=== PATIENT | male | born 1950 | race Caucasian/White ===

== ENCOUNTER → 2017-05-20 | Outpatient (CLI) | payer OTHER, BC | LOC: BRMIMAGING 13:58 | PROVIDERS: ATTEND Family Medicine Sports Medicine | DX: Z13.820 Encounter for screening for osteoporosis (principal); M85.80 Other specified disorders of bone density and structure, unspecified site; Z82.62 Family history of osteoporosis ==

== ENCOUNTER → 2017-12-22 | Outpatient (CLI) | payer OTHER, BC | LOC: FIMAGING 11:34 | PROVIDERS: ATTEND Physical Medicine & Rehabilitation Pain Medicine | DX: M43.16 Spondylolisthesis, lumbar region (principal); M48.061 Spinal stenosis, lumbar region without neurogenic claudication ==

== ENCOUNTER → 2017-12-29 | Outpatient (CLI) | payer OTHER, BC | LOC: FIMAGING 11:27 | PROVIDERS: ATTEND Physical Medicine & Rehabilitation Pain Medicine | DX: M48.061 Spinal stenosis, lumbar region without neurogenic claudication (principal) ==

== ENCOUNTER 2018-01-23 07:15 | Inpatient (IN) | payer OTHER, BC ==
[~2018-01-23 07:15] MED LIST: TRANEXAMIC ACID 1,000 MG in NS (SYRINGE) 50 ML IV ONE
[2018-01-23] MEDS ORDERED: morphINE PF 5 MG/10 ML INJ IT ONE (07:40)
[2018-01-23] MEDS ORDERED: ceFAZolin 2 GM/SWFI 2 GM/20 ML SYR IVP ONE (07:40)
[2018-01-23] MEDS ORDERED: fentaNYL 100 MCG/2 ML INJ IT ONE (07:40)
[2018-01-23] MEDS ORDERED: LR 1,000 ML IV ONE (07:42)
--- NOTE | 2018-01-23 08:32 | PDHPUP ---
History & Physical Update H&P update statement: This history and physical update is based on an assessment of the patient which was completed after admission or registration (within 24 hours), but prior to the surgery/procedure. H&P update: H&P reviewed & patient examined, no change in patient's condition since H&P completed
[2018-01-23] MEDS ORDERED: THROMBIN (BOVINE) 5,000 UNIT VIAL TP ONE (09:33)
[2018-01-23] MEDS ORDERED: BACITRACIN 50,000 UNITS/10 ML SYR IRR ONE ×2 (09:33→11:41)
[2018-01-23] MEDS ORDERED: CHLORHEXIDINE GLUC HIBICLENS 118 ML BTL TP ONE (09:33)
[2018-01-23] MEDS ORDERED: PROPOFOL 200 MG/20 ML VIAL ONE (09:47)
[2018-01-23] MEDS ORDERED: fentaNYL 100 MCG/2 ML INJ ONE ×3 (09:47→12:25)
[2018-01-23] MEDS ORDERED: REMIFENTANIL HCL 1 MG VIAL ONE (09:47)
[2018-01-23] MEDS ORDERED: PROPOFOL/EMULSION 500 MG/50 ML BOTTLE IV ONE (09:47)
[2018-01-23] MEDS ORDERED: DIAZEPAM 5 MG/ML 1 ML SYR IVP PRN (09:51)
[2018-01-23] MEDS ORDERED: OXYCODONE/APAP 5/325 TAB PO PRN (09:51)
[2018-01-23] MEDS ORDERED: fentaNYL 100 MCG/2 ML INJ IVP PRN (09:51)
[2018-01-23] MEDS ORDERED: HYDROCODONE/APAP 5/325 TAB PO PRN (09:51)
[2018-01-23] MEDS ORDERED: ENALAPRILAT DIHYDRATE 1.25 MG/ML VIAL IVP PRN (09:51)
[2018-01-23] MEDS ORDERED: LR 500 ML IV PRN (09:51)
[2018-01-23] MEDS ORDERED: ACETAMINOPHEN 500 MG TAB PO PRN (09:51)
[2018-01-23] MEDS ORDERED: ONDANSETRON 4 MG/2 ML VIAL IVP PRN ×2 (09:51→12:38)
[2018-01-23] MEDS ORDERED: PROMETHAZINE HCL 25 MG/ML INJ IVP PRN (09:51)
[2018-01-23] MEDS ORDERED: NALOXONE HCL 0.4 MG/ML INJ IVP PRN ×2 (09:51→12:38)
--- NOTE | 2018-01-23 09:51 | PDANEPAE ---
ANE Past Medical History - Cardiovascular History Hx Hypertension: No Hx Arrhythmias: No Hx Chest Pain: No Hx Coronary Artery / Peripheral Vascular Disease: No Hx CHF / Valvular Disease: No Hx Palpitations: No Cardiovascular History Comment: BROTHER [place] AT AGE 42. FATHER CARDIAC HX - Pulmonary History Hx COPD: No Hx Asthma/Reactive Airway Disease: No Hx Recent Upper Respiratory Infection: No Hx Oxygen in Use at Home: No Hx Sleep Apnea: No Sleep Apnea Screening Result - Last Documented: Negative - Neurologic History Hx Cerebrovascular Accident: No Hx Seizures: Yes Hx Dementia: No Neurologic History Comment: TEMPORAL LOBE SEIZURES - MILD. NONE FOR PAST 2 YEARS - Endocrine History Hx Diabetes: No Hypothyroid: No Hyperthyroid: No Obesity: no - Renal History Hx Renal Disorders: No - Liver History Hx Hepatic Disorders: No - Neurological & Psychiatric Hx Hx Neurological and Psychiatric Disorders: No - Cancer History Hx Cancer: No - Congenital Disorder History Hx Congenital Disorders: No - GI History GERD: mild Hx Gastrointestinal Disorders: Yes Gastrointestinal History Comment: PEPCID FOR HEARTBURN - Other Health History Other Health History: PSORIASIS - HUMIRA PEN - Chronic Pain History Chronic Pain: Yes (R KNEE) - Surgical History Prior Surgeries: KNEE R ARTHROSCOPIC ANE Review of Systems Review of Systems: - Exercise capacity METS (RN): 5 METS ANE Patient History - Allergies Allergies/Adverse Reactions: Antihistamines - Alkylamine Allergy (Verified 01/09/18 10:38) CAUSE SEIZURES - Home Medications Home Medications: Atorvastatin Calcium [Lipitor 10 mg (*)] 10 mg PO DAILY 05/18/12 [Last Taken 01/29 06:00] Zonisamide [Zonegran 100MG (*)] 200 mg PO DAILY 09/16/14 [Last Taken 01/23/18] Adalimumab [Humira] 40 mg SQ Q30D 01/07/18 [Last Taken 01/16/18] Herbals/Supplements -Info Only 1 ea PO DAILY 01/07/18 [Last Taken 01/16/18] Ibuprofen [Motrin (*)] 200 mg PO DAILY PRN 01/07/18 [Last Taken 01/16/18] Magnesium Oxide [Magnesium Oxide 400 mg (*)] 400 mg PO DAILY 01/07/18 [Last Taken 01/16/18] Famotidine [Pepcid 20 MG (*)] 20 mg PO DAILY 01/09/18 [Last Taken 01/22/18] - NPO status NPO Since - Liquids (Date): 01/22/18 NPO Since - Liquids (Time): 22:00 NPO Since - Solids (Date): 01/22/18 NPO Since - Solids (Time): 19:00 - Smoking Hx Smoking Status: Former smoker ANE Labs/Vital Signs - Vital Signs Blood Pressure: 158/92 Heart Rate: 63 Respiratory Rate: 16 O2 Sat (%): 98 Height: 182.88 cm Weight: 72.575 kg ANE Physical Exam - Airway Neck exam: FROM Mallampati Score: Class 2 Mouth exam: normal dental/mouth exam - Pulmonary Pulmonary: no respiratory distress - Cardiovascular Cardiovascular: regular rate and rhythym, no murmur, rub, or gallop - ASA Status ASA Status: II ANE Anesthesia Plan Anesthesia Plan: general endotracheal anesthesia Total IV Anesthesia: No
[2018-01-23] MEDS: BUPIVACAINE 0.25% 30 ML SDV ONE ×2 (10:55→12:34)
[2018-01-23] MEDS ORDERED: morphINE PF 5 MG/10 ML INJ ONE (11:41)
[2018-01-23] MEDS ORDERED: BISACODYL 10 MG SUPP PR PRN (12:38)
[2018-01-23] MEDS ORDERED: MAGNESIUM HYDROXIDE 30 ML UDCUP PO PRN (12:38)
[2018-01-23] MEDS ORDERED: LACTULOSE 20 GM/30 ML UDCUP PO PRN (12:38)
[2018-01-23] MEDS ORDERED: ONDANSETRON DISINTEGRATING 4 MG TAB PO PRN (12:38)
--- NOTE | 2018-01-23 12:48 | SOAPPROG ---
SOAP Progress Note Assessment/Plan: Assessment: 46 M sp L4/5 tlif with durotomy Plan: stable hob flat for 48 hours do NOT put JEFFREY to suction LSO brace when out of bed please call with neuro changes 01/23/18 12:47 Subjective: + back pain, no leg pain. Objective: Vital Signs Temp Pulse Resp BP Pulse Ox 36.4 C 63 16 158/92 H 98 01/23/18 08:00 01/23/18 09:51 01/23/18 09:51 01/23/18 09:51 01/23/18 09:51 somnolent, PERRL no facial droop 5/5 + light touch ICD10 Worksheet Patient Problems: Problems Problem Status Onset Primary localized osteoarthrosis, lower leg Chronic
--- NOTE | 2018-01-23 13:23 | POSTANESTH ---
Post Anesthetic Evaluation Cardiovascular Status: Normal, Stable Respiratory Status: Normal, Stable Level of Consciousness/Mental Status: Can Participate in Eval Pain Control: Adequate, Prn Tx Ordered Nausea/Vomiting Control: Adequate, Prn Tx Ordered Complications Possibly Related to Anesthesia: None Noted
[2018-01-23] MEDS ORDERED: ceFAZolin 2 GM/DEXTROSE 100 ML IV SCH (14:00)
--- NOTE | 2018-01-23 14:08 | GOP ---
[f rep st] OPERATIVE REPORT DATE OF OPERATION: 01/23/2018 SURGEON: George Clement MD DIRECTOR HR COMMUNICATIONS: London Gates PA-C. ANESTHESIA: General endotracheal. PREOPERATIVE DIAGNOSIS: Severe L4-5 disk degeneration and collapse with severe spinal stenosis and lateral recess impingement with an L4-5 facet cyst. Intractable back and leg pain. Failed conservative care. POSTOPERATIVE DIAGNOSIS: Severe L4-5 disk degeneration and collapse with severe spinal stenosis and lateral recess impingement with an L4-5 facet cyst. Intractable back and leg pain. Failed conservative care. PROCEDURE PERFORMED: 1. Mini open exposure for left-sided L4-5 far lateral transpedicular decompression and resection of facet cyst with repair of CSF leak requiring extension of laminectomy defect. 2. L4-5 posterior nonsegmental (pedicle screw) fixation and posterolateral fusion with local autograft and bone morphogenic protein. 3. L4-5 posterior/transforaminal lumbar interbody fusion with 2 structural PEEK interbody spacers, local autograft and bone morphogenic protein. 4. Use of intraoperative microscopy, fluoroscopy and computer volumetric stereotactic navigation with intraoperative neurophysiologic testing. 5. Injection of intrathecal narcotic analgesics for postoperative pain control. FINDINGS: ESTIMATED BLOOD LOSS: 75 cc. INDICATIONS: The patient is a 67-year-old man with intractable low back pain and left greater than right lower extremity radicular pain secondary to severe disk degeneration and collapse with severe spinal stenosis and lateral recess impingement. He has failed extensive conservative care and presents now for surgical decompression and stabilization through a mini open approach. DESCRIPTION OF PROCEDURE: After informed consent was obtained, the patient was taken to the operating room and placed in the prone position on the Filemon table. The lumbosacral area was prepped and draped in a sterile fashion. After fluoroscopic localization of the correct levels, the subcutaneous and intramuscular tissues were infiltrated with local anesthesia. A midline linear incision was then created over the L4-5 spinous processes. This was carried down the fascial layer, which was then incised using monopolar electrocautery and carried in a subperiosteal dissection down the spinous processes and lamina bilaterally. Intraoperative fluoro was again utilized to verify the correct levels. Following this, a dissection was carried out over the facet joints and a left-sided far lateral transpedicular decompression was performed with complete unroofing of the facet joint and neural foramina at L4 and L5. There was a large facet cyst causing severe impingement of the dura that was meticulously peeled off under high-power microscopy but unfortunately when it came off completely, there was a small hole with CSF leaking out of this on the very dorsal aspect of where it was attached. This required an extension of the hemilaminectomy/facetectomy defect for adequate exposure. A single 4-0 Nurolon suture was placed over this, along with DuraGen, and no further leakage was observed. Following this, the Cozi neuronavigational system was brought in and using computer volumetric stereotactic navigation, pedicle screws were placed at L4 and L5 bilaterally. Each individual screw was tested neurophysiologically with monopolar electrostimulation and interpretation of the potentials by the surgeon. The rods were then placed and secured under distraction, during which time a complete diskectomy was performed at the L4-5 level with preparation of the endplates and placement of 2 structural PEEK interbody spacers, local autograft and bone morphogenic protein for an L4-5 posterior/transforaminal lumbar interbody fusion. Following this, the screw and kimmie system were placed in a slight amount of compression in order to facilitate bony union and to minimize the potential for posterior graft migration. The remaining lamina and facet joint on the right side were then extensively decorticated, and the residual local autograft from the facetectomy defect along with bone morphogenic protein was placed out laterally for a posterolateral fusion at the L4-5 level. 200 mcg of Duramorph along with 50 mcg of fentanyl were injected intrathecally for postoperative pain control. The subcutaneous and intramuscular tissues were re-infiltrated with local anesthesia. A drain was placed and the wound was closed in a layered fashion using interrupted Vicryl sutures followed by Steri-Strips on the skin. COMPLICATIONS: None. DISPOSITION: The patient was extubated and transferred to the recovery room in stable condition. /[id number]/MODL MTDD
[2018-01-23] MEDS: oxyCODONE IR 5 MG TAB PO PRN ×2 (14:09→21:47)
[2018-01-23] MEDS: METHOCARBAMOL 750 MG TAB PO PRN (15:24)
[2018-01-23] MEDS: DIAZEPAM 5 MG TAB PO PRN ×2 (16:09→21:47)
[2018-01-23] MEDS: ceFAZolin 2 GM/SWFI 2 GM/20 ML SYR IVP SCH ×2 (16:09→23:05)
--- NOTE | 2018-01-23 16:58 | PDMN ---
Medical Necessity Medical necessity: Pt meets IP criteria; [facility] IP only surgery CPT 72317 Lumbar Fusion
[2018-01-23] MEDS: POLYETHYLENE GLYCOL 3350 17 GM PKT PO SCH ×2 (17:37→21:48)
[2018-01-23] MEDS ORDERED: ADALIMUMAB 40 MG/0.8 ML INJ SC SCH (17:45)
[2018-01-23] MEDS: morphINE SR 15 MG TAB PO SCH (21:46)
[2018-01-23] MEDS: FAMOTIDINE 20 MG TAB PO SCH (21:47)
[2018-01-23] MEDS: SENNOSIDES/DOCUSATE SODIUM TAB PO SCH (21:48)
[2018-01-24 05:10] LABS: PLATELET COUNT 181 10^3/uL (150-400)
--- NOTE | 2018-01-24 07:54 | SOAPPROG ---
SOAP Progress Note Assessment/Plan: Assessment: 67 yo male POD #1 sp L4/5 TLIF with Durotomy. HOB flat until Saturday AM. sensation improved in bilateral feet Plan: HOB flat until Saturday AM JEFFREY NOT to suction Xrays Saturday once he is up and mobile. Contiue Morrison due to bed rest lovenox starts today, continue Teds/SCDs 01/24/18 07:50 01/24/18 07:55 Subjective: lying flat, feeling fine. He states his feet haven't felt this goo in 10 years. Denies new numbness, tingling or weakness. Morrison placed last night due to inability to urinate while flat in bed. 800ml on bladder scan prior to morrison placement. Objective: Vital Signs Temp Pulse Resp BP Pulse Ox 36.8 C 87 18 157/86 H 96 01/24/18 04:00 01/24/18 04:00 01/24/18 04:00 01/24/18 04:00 01/24/18 04:00 Laboratory Results 01/24/18 04:55 01/24/18 04:55 01/23/18 01/24/18 01/25/18 05:59 05:59 05:59 Intake Total 2140 Output Total 1200 Balance 940 Neuro: TROY, sens +LT 5/5 bilat LE Incision: glued. CDI, no drainage from incision JEFFREY: approx 3-5 ml in bulb this AM serosang. ICD10 Worksheet Patient Problems: Problems Problem Status Onset Primary localized osteoarthrosis, lower leg Chronic
[2018-01-24] MEDS: ENOXAPARIN 40 MG/0.4 ML SYR SC SCH (09:30)
[2018-01-24] MEDS: ZONISAMIDE 100 MG CAP PO SCH (09:31)
[2018-01-24] MEDS: SENNOSIDES/DOCUSATE SODIUM TAB PO SCH ×2 (09:31→21:59)
[2018-01-24] MEDS: FAMOTIDINE 20 MG TAB PO SCH ×2 (09:32→21:59)
[2018-01-24] MEDS: morphINE SR 15 MG TAB PO SCH (09:32)
[2018-01-24] MEDS: MAGNESIUM OXIDE 400 MG TAB PO SCH (09:32)
[2018-01-24] MEDS: POLYETHYLENE GLYCOL 3350 17 GM PKT PO SCH ×3 (09:32→21:59)
[2018-01-24] MEDS: ATORVASTATIN CALCIUM 10 MG TAB PO SCH (09:32)
[2018-01-24] MEDS: METHOCARBAMOL 750 MG TAB PO PRN ×3 (09:41→16:52)
[2018-01-24] MEDS: oxyCODONE IR 5 MG TAB PO PRN ×3 (12:04→18:39)
--- NOTE | 2018-01-24 12:58 | ASMTCMCOM ---
CM Note CM Note Notes: Chart reviewed for discharge planning purposes, Patient 67 year old male here for elective back surgery. Bedrest till Saturday am. Therapy evals pending. DC needs to be determined at this time. CM to follow. Date Signed: 01/24/2018 12:57 PM Electronically Signed By:Adelina Smalls RN
[2018-01-24] MEDS: morphINE SR 30 MG TAB PO SCH (21:59)
[2018-01-25 04:36] VITALS: RESP 16
[2018-01-25] MEDS: METHOCARBAMOL 750 MG TAB PO PRN (09:52)
[2018-01-25] MEDS: SENNOSIDES/DOCUSATE SODIUM TAB PO SCH (09:52)
[2018-01-25] MEDS: POLYETHYLENE GLYCOL 3350 17 GM PKT PO SCH ×2 (09:52→18:59)
[2018-01-25] MEDS: ENOXAPARIN 40 MG/0.4 ML SYR SC SCH (09:52)
[2018-01-25] MEDS: morphINE SR 30 MG TAB PO SCH ×2 (09:53→22:14)
[2018-01-25] MEDS: ATORVASTATIN CALCIUM 10 MG TAB PO SCH (09:53)
[2018-01-25] MEDS: MAGNESIUM OXIDE 400 MG TAB PO SCH (09:53)
[2018-01-25] MEDS: FAMOTIDINE 20 MG TAB PO SCH ×2 (09:53→22:14)
[2018-01-25] MEDS: ZONISAMIDE 100 MG CAP PO SCH (09:56)
--- NOTE | 2018-01-25 13:43 | NEUSURGPN ---
Assessment/Plan: 67 yo male POD #2 sp L4/5 TLIF with Durotomy. Plan: Raise HOB by 10 degrees per hour, monitor for positional headaches JEFFREY NOT to suction - continue drain Xrays Saturday once he is up and mobile. Continue Houser due to bed rest - dc once ambulatory lovenox, continue Teds/SCDs Call NS with any questions Subjective: Pt resting in bed, looking forward to getting up today Objective: AAOx3 NAD VSS MAEx4 Motor 5/5 BLE Incision dressed cdi JPx1 Houser in Urinary Catheter in Place: Yes Urinary Catheter Indication: Urinary Tract Obstruction - Physician Discussed Patient with : [facility] Physical Exam - Vitals, I&O, Labs I and O 01/24/18 01/25/18 01/26/18 05:59 05:59 06:59 Intake Total 2140 2000 Output Total 1200 1600 Balance 940 400 Weight 72.575 kg Intake: Oral (ml) 240 2000 IV Intake (ml) 1900 Output: Urine (ml) 1000 1600 Catheter 1000 1600 Estimated Blood Loss (ml) 200 Other: Intake Quantity Yes Yes Sufficient Number of Voids Catheter 1 Vital Signs Temp Pulse Resp BP Pulse Ox 37.1 C 89 16 146/79 H 93 01/25/18 11:43 01/25/18 11:43 01/25/18 11:43 01/25/18 11:43 01/25/18 11:43 Laboratory Results 01/24/18 04:55 01/24/18 04:55 ICD10 Worksheet Patient Problems: Problems Problem Status Onset Primary localized osteoarthrosis, lower leg Chronic
[2018-01-26] MEDS: POLYETHYLENE GLYCOL 3350 17 GM PKT PO SCH ×3 (00:34→16:03)
[2018-01-26] MEDS: SENNOSIDES/DOCUSATE SODIUM TAB PO SCH ×2 (00:34→09:47)
--- NOTE | 2018-01-26 08:55 | NEUSURGPN ---
Assessment/Plan: 67 yo male POD #3 sp L4/5 TLIF with Durotomy. Plan: Spine precautions, otherwise activity as tolerated PT/OT JEFFREY NOT to suction - continue drain until just prior to discharge Xrays pending Houser out. urinating ok and had BM lovenox, continue Teds/SCDs Dispo: home likely later today if clears therapies Dw Dr Crawford Call NS with any questions Subjective: Pt resting in bed, no headaches. States back pain is better as well. Objective: AAOx3 NAD VSS MAEx4 Motor 5/5 BLE Incision cdi Jpx1 +LT Urinary Catheter in Place: No - Physician Discussed Patient with : [facility] Physical Exam - Vitals, I&O, Labs I and O 01/25/18 01/26/18 01/27/18 04:59 05:59 05:59 Intake Total Output Total Balance Intake: Oral (ml) Output: Urine (ml) Catheter JEFFREY Drain Output (ml) Left Back Filemon Avalos Other: Intake Quantity Sufficient Number of Voids Catheter Toilet 1 Number of Stools Toilet Vital Signs Temp Pulse Resp BP Pulse Ox 36.8 C 93 16 136/83 H 92 01/26/18 07:44 01/26/18 07:44 01/26/18 07:44 01/26/18 07:44 01/26/18 07:44 Laboratory Results 01/24/18 04:55 01/24/18 04:55 ICD10 Worksheet Patient Problems: Problems Problem Status Onset Primary localized osteoarthrosis, lower leg Chronic
[2018-01-26] MEDS: morphINE SR 30 MG TAB PO SCH (09:34)
[2018-01-26] MEDS: MAGNESIUM OXIDE 400 MG TAB PO SCH (09:34)
[2018-01-26] MEDS: FAMOTIDINE 20 MG TAB PO SCH (09:34)
[2018-01-26] MEDS: ATORVASTATIN CALCIUM 10 MG TAB PO SCH (09:34)
[2018-01-26] MEDS: METHOCARBAMOL 750 MG TAB PO PRN (09:35)
[2018-01-26] MEDS: ENOXAPARIN 40 MG/0.4 ML SYR SC SCH (09:36)
[2018-01-26] MEDS: ZONISAMIDE 100 MG CAP PO SCH (09:47)
[2018-01-26 13:37] VITALS: O2SAT 93
--- NOTE | 2018-01-26 13:54 | PDHOMEO2F ---
Home Oxygen Face to Face Home Orders: I certify that a physician or a nurse practitioner or physician's commissary assistant has had a [id number] encounter with this patient on the date of this order due to the diagnosis listed, which relates to the primary reason the patient requires home oxygen. Alternative treatments have been tried, or considered, and deemed ineffective. It is anticipated that supplemental oxygen will result in improvement with treatment. Home oxygen qualifying diagnosis: hypoxia I certify that, based on these findings, the home oxygen is medically necessary for this patient for the following length of time.
[2018-01-26 16:52] VITALS: BP 142/80; PULSE 88; TEMP 98.2
--- NOTE | 2018-01-26 18:01 | ASMTCMCOM ---
CM Note CM Note Notes: Met with pt to discuss HC needs. Pt is current with [facility] for 5 hrs/day of pvt duty help. She goes to outpt PT at [facility]. She declines any other help in the home. Date Signed: 01/26/2018 10:36 AM Electronically Signed By:Anabel Castle LCSW
--- NOTE | 2018-01-26 18:01 | ASMTCMCOM ---
CM Note CM Note Notes: Pt ready for DC today. He has no DC needs. Date Signed: 01/26/2018 10:23 AM Electronically Signed By:Anabel Castle LCSW
--- NOTE | 2018-01-26 18:02 | ASMTCMCOM ---
CM Note CM Note Notes: Pt had no HC needs. Please disregard previous case management. It was for a different pt. Date Signed: 01/26/2018 05:00 PM Electronically Signed By:Anabel Castle LCSW
[2018-02-14] MEDS ORDERED: ADALIMUMAB 40 MG/0.8 ML INJ SC SCH (18:00)
== END 2018-01-26 17:18 | disposition home or self-care (01) | DRG 460 ==
LOC: F3N 07:27 → OBSVTOIN 12:43 → F3N 13:55
PROVIDERS: ADMIT Neurological Surgery; ATTEND Neurological Surgery
PROC: 01NB0ZZ Release Lumbar Nerve, Open Approach (ICD-10-PCS; principal; 2018-01-23 09:00)
PROC: 3E0U0GB Introduction of Recombinant Bone Morphogenetic Protein into Joints, Open Approach (ICD-10-PCS; principal; 2018-01-23 09:00)
PROC: 00Q20ZZ Repair Dura Mater, Open Approach (ICD-10-PCS; principal; 2018-01-23 09:00)
PROC: 0SG00AJ Fusion of Lumbar Vertebral Joint with Interbody Fusion Device, Posterior Approach, Anterior Column, Open Approach (ICD-10-PCS; principal; 2018-01-23 09:00)
DX: M51.36 Other intervertebral disc degeneration, lumbar region (principal); M48.061 Spinal stenosis, lumbar region without neurogenic claudication; M71.38 Other bursal cyst, other site; G97.41 Accidental puncture or laceration of dura during a procedure; L40.9 Psoriasis, unspecified; K21.9 Gastro-esophageal reflux disease without esophagitis; Z96.659 Presence of unspecified artificial knee joint
CPT/HCPCS: 97116-GP; 97161-GP; 97165-GO; C1713; G8978-GP-CJ; G8979-GP-CJ; G8980-GP-CJ; G8987-GO-CI; G8988-GO-CI; J0171; J0690; J1650; J2270; J2274; J2704; J3010

== ENCOUNTER → 2018-04-20 | Outpatient (CLI) | payer OTHER, BC | LOC: FIMAGING 08:28 | PROVIDERS: ATTEND Physician Assistant Surgical | DX: Z09 Encounter for follow-up examination after completed treatment for conditions other than malignant neoplasm (principal); M43.16 Spondylolisthesis, lumbar region; Z98.1 Arthrodesis status ==

== ENCOUNTER → 2018-11-02 | Outpatient (CLI) | payer OTHER, BC | LOC: FIMAGING 09:22 | PROVIDERS: ATTEND Physician Assistant Surgical | DX: Z09 Encounter for follow-up examination after completed treatment for conditions other than malignant neoplasm (principal); Z98.1 Arthrodesis status; M47.816 Spondylosis without myelopathy or radiculopathy, lumbar region; M43.8X5 Other specified deforming dorsopathies, thoracolumbar region ==